=== PATIENT | female | born 1950 | race Caucasian/White ===

== ENCOUNTER 2025-06-08 08:10 | Outpatient (CLI) | payer MEDICARE, BC ==
--- NOTE | 2025-06-08 10:59 | RADIOLOGY REPORT ---
CLINICAL INFORMATION: Right shoulder pain. Injury of rotator cuff. TECHNIQUE: Multisequence multiplanar MRI images of the right shoulder were obtained without contrast. COMPARISON: None FINDINGS: Acromioclavicular joint: There is [id number] acromioclavicular hypertrophy and iheo-[id number]-cavhgoim edema. There is Type 2 acromion. Moderate amount of fluid in the subacromial / subdeltoid bursa. Small T2 hypointense foci adjacent to the greater tuberosity within the subacromial/subdeltoid bursa, possible bursal calcification. Rotator cuff tendons: Mild tendinosis of the distal supraspinatus and infraspinatus tendons. No tear visualized. Mild tendinosis of the distal subscapularis tendon with minimal thin interstitial tear at its insertion. Biceps tendon: No significant tendinosis. No evidence of attrition or tear. Labrum: No labral tear identified. Bones: No fracture or focal marrow contusion. Muscles: Normal muscle bulk. No atrophy. Other: There is artifact near the acromion, may be sequelae of prior surgery/intervention. IMPRESSION: 1. Rotator cuff tendinosis. Small thin interstitial tear at the distal subscapularis insertion. No full-thickness or near full-thickness tear. 2. [id number] acromioclavicular hypertrophy with moderate subacromial/subdeltoid bursitis. Small T2 hypointense foci in the subacromial/subdeltoid bursa adjacent to the greater tuberosity, may be due to calcification, including hydroxyapatite deposition. Correlation with clinical findings and radiographs recommended. 3. Additional findings as described above.
== END 2025-06-08 23:59 | disposition home or self-care (01) ==
LOC: MRI02 08:10
PROVIDERS: ATTEND Physician Assistant
DX: S46.001A Unspecified injury of muscle(s) and tendon(s) of the rotator cuff of right shoulder, initial encounter (principal); M75.31 Calcific tendinitis of right shoulder; M75.101 Unspecified rotator cuff tear or rupture of right shoulder, not specified as traumatic; M89.311 Hypertrophy of bone, right shoulder; X58.XXXA Exposure to other specified factors, initial encounter; Y93.89 Activity, other specified; Y92.89 Other specified places as the place of occurrence of the external cause; Y99.8 Other external cause status
CPT/HCPCS: 73221